=== PATIENT | female | born 2000 | race Two or more races ===

== ENCOUNTER 2025-02-27 13:46 | Inpatient (IN) | payer OTHER, SELFPAY ==
[~2025-02-27] VITALS: Ht 157.5 cm; Wt 59.1 kg
--- NOTE | 2025-02-27 14:57 | ED.PDOC ---
GI ASSESSMENT HPI Comments 24-year-old female presents here with abdominal pain. She states it began in the epigastric region and has been radiating to the right lower quadrant. She states this began around 9:00 p.m. yesterday. No nausea no vomiting no diarrhea. She states she is having regular bowel movements. No history of similar type of pain. She has not taken anything for the pain. She went to urgent care today and was sent to the ER here for further evaluation. Denies any fevers. She states when she pushes on her right lower quadrant she does have significant pain. She has a history of right ovarian cyst in the past. 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 Family History Family History: Reviewed,noncontributory to illness, Unknown Social History Smoker: Non-Smoker Alcohol: Denies ETOH Use Drugs: Denies Drug Use Lives In: Home Constitutional: denies: chills, diaphoresis, fatigue, fever, malaise, sweats, weakness, others EENTM: denies: blurred vision, double vision, ear bleeding, ear discharge, ear drainage, ear pain, ear ringing, eye pain, eye redness, hearing loss, mouth pain, mouth swelling, nasal discharge, nose bleeding, nose congestion, nose pain, photophobia, tearing, throat pain, throat swelling, voice changes, others Respiratory: denies: cough, hemoptysis, orthopnea, SOB at rest, shortness of breath, SOB with excertion, stridor, wheezing, others Cardiovascular: denies: chest pain, dizzy spells, diaphoresis, Dyspnea on exertion, edema, irregular heart beat, left arm pain, lightheadedness, palpitations, PND, syncope, others Gastrointestinal: reports: abdominal pain; denies: abdomen distended, blood streaked bowels, constipated, diarrhea, dysphagia, difficulty swallowing, hematemesis, melena, nausea, poor appetite, poor fluid intake, rectal bleeding, rectal pain, vomiting, others Genitourinary: denies: abnormal vagina bleeding, burning, dyspareunia, dysuria, flank pain, frequency, hematuria, incontinence, pain, , vagina discharge, urgency, others Neurological: denies: dizziness, fainting, headache, left sided numbness, left sided weakness, numbness, paresthesia, pre-existing deficit, right sided numbness, right sided weakness, seizure, speech problems, tingling, tremors, weakness, others Musculoskeletal: denies: back pain, gout, joint pain, joint swelling, muscle pain, muscle stiffness, neck pain, others Integumetry: denies: bruises, change in color, change in hair/nails, dryness, laceration, lesions, lumps, rash, wounds, others Allergic/Immunocompromised: denies: Difficulty Healing, Frequent Infections, Hives, Itching, others Hematologic/Lymphatic: denies: anemia, blood clots, easy bleeding, easy bruising, swollen glands, others Endocrine: denies: excessive hunger, excessive sweating, excessive thirst, excessive urination, flushing, intolerance to cold, intolerance to heat, unexplained weight gain, unexplained weight loss, others Psychiatric: denies: anxiety, bipolar disorder, depression, hopeless, panic disorder, schizophrenia, sleepless, suicidal, others All Other Systems: Reviewed and Negative Physical Exam General Appearance: Moderate Distress HEENT: Normal ENT Inspection, Pharynx Normal, TMs Normal Neck: Full Range of Motion, Non-Tender, Normal, Normal Inspection Respiratory: Chest Non-Tender, Lungs Clear, No Accessory Muscle Use, No Respiratory Distress, Normal Breath Sounds Cardiovascular: No Edema, No JVD, No Murmur, No Gallop, Normal Peripheral Pulses, Regular Rate/Rhythm Breast Exam: Deferred Gastrointestinal: Soft, Tenderness, Other (Right lower quadrant tenderness to palpation) Genitalia: Deferred Pelvic: Deferred Rectal: Deferred Extremities: No calf tenderness, Normal capillary refill, Normal inspection, Normal range of motion, Non-tender, No pedal edema Musculoskeletal : Apperance: Normal Neurologic: Alert, No Motor Deficits, Normal Affect, Normal Mood, No Sensory Deficits Cerebellar Function: Normal Reflexes: Normal Skin: Dry, Normal Color, Warm Lymphatic: No Adenopathy Was a procedure done? Was a procedure done?: No GI differential Dx Differential Diagnosis: Appendicitis, Cholecystitis, Ectopic , Gastritis/PUD, Gastroenteritis, Ovarian cyst/torsion, UTI, Dehydration, Electrolyte Imbalance, , Impaction X-Ray, Labs, Meds, VS Vital Signs Date Time Temp Pulse Resp B/P (MAP) Pulse Ox O2 Delivery O2 Flow Rate FiO2 02/27/25 17:46 78 18 118/70 02/27/25 17:40 97.5 78 18 118/70 (86) 98 97.5 02/27/25 13:47 97.7 71 18 109/68 100 97.7 Lab Test 02/27/25 15:15 02/27/25 14:52 Range/Units Urine Color Yellow Yellow Urine Clarity Clear Clear Urine pH 6.0 5.0-9.0 Urine Specific [place] 1.035 1.001-1.035 Urine Protein Trace H Negative Urine Ketones 1+ H Negative Urine Blood 3+ H Negative /uL Urine Nitrite Negative Negative Urine Bilirubin Negative Negative Urine Urobilinogen 2 H Negative mg/dL Urine Leukocyte Esterase Negative Negative /uL Urine RBC 319 0 - 4 /hpf Urine Microscopic WBC 2 0-5 /HPF Urine Squamous Epithelial Cells Mod <5 /hpf Urine Bacteria None seen None Seen /hpf Urine Mucus Few None Seen Urine Glucose Normal Normal mg/dL Urine Test Negative Negative White Blood Count 9.5 4.4-10.8 10^3/uL Red Blood Count 4.74 4.0-5.20 10^6/uL Hemoglobin 13.6 12.2-16.2 g/dL Hematocrit 39.8 36.0-46.0 % Mean Corpuscular Volume 84.0 80.0-100.0 fL Mean Corpuscular Hemoglobin 28.7 28.0-32.0 pg Mean Corpuscular Hemoglobin Concent 34.1 32.0-36.0 g/dL Red Cell Distribution Width 14.5 H 11.8-14.3 % Platelet Count 277 140-450 10^3/uL Mean Platelet Volume 8.6 6.9-10.8 fL Neutrophils (%) (Auto) 67.7 37.0-80.0 % Lymphocytes (%) (Auto) 22.0 10.0-50.0 % Monocytes (%) (Auto) 7.8 0.0-12.0 % Eosinophils (%) (Auto) 1.6 0.0-7.0 % Basophils (%) (Auto) 0.9 0.0-2.0 % Neutrophils # (Auto) 6.4 1.6-8.6 10 ^3/uL Lymphocytes # (Auto) 2.1 0.4-5.4 10 ^3/uL Monocytes # (Auto) 0.7 0-1.3 10 ^3/uL Eosinophils # (Auto) 0.1 0-0.8 10 ^3/uL Basophils # (Auto) 0.1 0-0.2 10 ^3/uL Nucleated Red Blood Cells 0.1 % Sodium Level 141 136-145 mmol/L Potassium Level 3.5 3.5-5.1 mmol/L Chloride Level 107 98-107 mmol/L Carbon Dioxide Level 22 20-31 mmol/L Anion Gap 12 5-15 Blood Urea Nitrogen 8 L 9-23 mg/dL Creatinine 0.88 0.550-1.02 mg/dL Glomerular Filtration Rate Calc 95 >90 mL/min BUN/Creatinine Ratio 9.1 L 10.0-20.0 Serum Glucose 72 L 74-106 mg/dL Calcium Level 9.4 8.7-10.4 mg/dL Total Bilirubin 0.7 0.2-1.0 mg/dL Aspartate Amino Transferase (AST) 20 13-40 U/L Alanine Aminotransferase (ALT) 17 7-40 U/L Alkaline Phosphatase 67 46-116 U/L Total Protein 7.8 5.7-8.2 g/dL Albumin 4.9 H 3.2-4.8 g/dL Lipase 24 12-53 U/L Current Medications Medications (Trade) Dose Ordered Sig/Frank Route Start Time Stop Time Status Last Admin Morphine Sulfate 4 mg ONCE ONCE IV 02/27/25 15:00 02/27/25 15:01 DC 02/27/25 17:46 [place] [id number] Ph: [phone] DIAGNOSTIC IMAGING Diagnostic Imaging Report : [id number] Signed PATIENT: MANAV TUCKER ACCT: [id number] UNIT: [id number] : 2000 LOC: ER ROOM / BED: / AGE / SEX: 24 / F ADM STATUS: REG ER SERVICE [id number] ORDERING PHYSICIAN: TERRIE PAL MD PROCEDURE(s): ABPLIV - CT AB PEL WITH IV CON ONLY REASON: ro appendicitis ORDER NUMBER(s): [id number], ACCESSION NUMBER(s): [id number] Exam: CT CT AB PEL WITH IV CON ONLY History: ro appendicitis Comparison Study: US PELVIC on DOS: 02/27/25 TECHNIQUE: Multidetector CT of the abdomen was performed from lung bases to pubic symphysis. Imaging was performed without IV contrast. Axial, coronal and sagittal multiplanar reformats were obtained from the axial data set by the technologist. Radiation Dose Information: CT Dose: CTDI volume is 6.24 mGy. Dose-length product is 292.95 mGy*cm FINDINGS: Evaluation of solid organs is limited due to lack of intravenous contrast use. Findings: Lung Bases: No acute or significant lung base finding. Normal heart size. No pleural or pericardial effusion. Liver: The liver is normal in size. No focal lesions. Gallbladder and Biliary Tree: Unremarkable Spleen: Unremarkable Pancreas: 5.3 by 4.7 x 3.9 cm mass in the body of the pancreas. CT abdomen and pelvis with oral and IV contrast or MRCP for further evaluation. Adrenal Glands: Unremarkable Kidneys: Kidneys are grossly normal without calculi or hydronephrosis. Bladder: Grossly unremarkable for degree of distention. Bowel: The stomach is grossly normal in appearance. Small bowel and colon are normal in caliber and distribution. The appendix is not visualized; however, no secondary findings of acute appendicitis identified. Ascites: Absent Lymphadenopathy: No mesenteric, retroperitoneal or periportal lymphadenopathy. Abdominal Wall and Mesentery: Unremarkable. Vasculature: The visualized abdominal aorta is normal in size and caliber. Evaluation of abdominal and pelvic vessels is limited due to lack of intravenous contrast. Pelvic Organs: IUD in the uterus Musculoskeletal: No aggressive focal bony lesions, acute fractures or dislocation. Soft tissues: Unremarkable IMPRESSION: 1. Findings worrisome for mass body of the pancreas measuring 5.3 x 4.7 by 3.[address] abdomen and pelvis with oral contrast or MRCP. This may r epresent a collection of unopacified bowel in the left upper quadrant. Radiation optimization: All CT scans at this facility use at least one of these dose optimization techniques: automated exposure control mA and/or kV adjustment per patient size (includes targeted exams where dose is matched to clinical indication) or iterative reconstruction. ATED BY: MARY WINN Jr., DO DICTATED DATE/TIME: 02/27/25 1733 SIGNED BY: MARY WINN Jr., DO SIGNED DATE/TIME: 02/27/25 5167 CC: 24-year-old female presents here with epigastric and right lower quadrant pain. On my examination she is exquisitely tender to the right lower quadrant I am concerned about possible appendicitis. Additionally considered possible cholecystitis pancreatitis, gastritis gastroenteritis. At this time I have ordered a CT abdomen pelvis with IV contrast to rule out appendicitis and as well as ultrasound of the pelvis to rule out ovarian torsion. I have ordered CBC CMP lipase. Also ordered her morphine and Zofran for pain and nausea. CBC and CMP has a returned which are unremarkable. Lipase within normal limits. Ultrasound of the pelvis with no evidence of torsion. CT abdomen pelvis with IV contrast demonstrates possible mass in the pancreas. In his recommending CT with oral contrast be done and/or MRCP. At this time hospitalist argenis roberto has been contacted for admission. Time of 1ST Reevaluation: 15:22 Reevaluation 1ST: Improved Patient Education/Counseling: Diagnosis, Treatment Family Education/Counseling: No Family Present SEPSIS Sepsis Screen Date sepsis recognized/suspect: Feb 27, 2025 Time Sepsis recognized/suspect: 1350 Recent Procedure: No On Antibiotic Therapy: No Respiratory Rate >20: No Heart Rate >90: No Temp<36 C (96.8 F) or >38.3 C: No SBP <90 or MAP <65 mmHG: No New Acute Mental Status Change: No Is the patient on CPAP, BIPAP,: No Physician Orders Ct Ab Pel With Iv Con Only (02/27/25 14:14) Transvaginal Us Non Ob (02/27/25 14:14) Pelvic (02/27/25 ) Vital Signs Date Time Temp Pulse Resp B/P (MAP) Pulse Ox O2 Delivery O2 Flow Rate FiO2 02/27/25 17:46 78 18 118/70 02/27/25 17:40 97.5 78 18 118/70 (86) 98 97.5 02/27/25 13:47 97.7 71 18 109/68 100 97.7 Laboratory Tests Test 02/27/25 14:52 White Blood Count 9.5 10^3/uL (4.4-10.8) Medications Medications Dose Ordered Sig/Frank Route Start Time Stop Time Status Last Admin Dose Admin Morphine Sulfate 4 mg ONCE ONCE IV 02/27/25 15:00 02/27/25 15:01 DC 02/27/25 17:46 Departure 1 Departure Time of Disposition: 18:00 Impression: Primary Impression: Abdominal pain Qualified Codes: R10.13 - Epigastric pain Additional Impression: Pancreatic mass Disposition: ADMITTED INPATIENT Condition: Stable Critical Care Note Critical Care Time?: No Stability Stability form required: No Heart Score Heart Score: Heart Score Response (Comments) Value History N/A 0 EKG N/A 0 Age N/A 0 Risk Factors N/A 0 Troponin N/A 0 Total 0 I personally scribed for TERRIE PAL MD ([email or web address]) on 02/27/25 at 15:18. Electronically submitted by Nathalie Sevilla ([facility] [employer] I personally scribed for TERRIE PAL MD ([email or web address]) on 02/27/25 at 17:43. Electronically submitted by Nathalie Sevilla ([facility] [employer]). TERRIE PAL MD Feb 27, 2025 14:57
[2025-02-27 15:12] LABS: Hematocrit 39.8 % (36.0-46.0); Hemoglobin 13.6 g/dL (12.2-16.2); Mean Corpuscular Hemoglobin 28.7 pg (28.0-32.0); Mean Corpuscular Volume 84.0 fL (80.0-100.0); Nucleated Red Blood Cells % 0.1 %
[2025-02-27 15:19] LABS: Potassium 3.5 mmol/L (3.5-5.1); Sodium 141 mmol/L (136-145)
[2025-02-27 15:20] LABS: Calcium 9.4 mg/dL (8.7-10.4)
[2025-02-27 15:25] LABS: BUN/Creatinine Ratio 9.1 (10.0-20.0)
[2025-02-27 15:26] LABS: Alkaline Phosphatase 67 U/L (46-116); Total Protein 7.8 g/dL (5.7-8.2)
[2025-02-27 15:27] LABS: Anion Gap 12 (5-15); Bilirubin, Total 0.7 mg/dL (0.2-1.0); Chloride 107 mmol/L (98-107); Glucose 72 mg/dL (74-106)
[2025-02-27 15:28] LABS: Blood Urea Nitrogen 8 mg/dL (9-23)
[2025-02-27 15:34] LABS: Albumin 4.9 g/dL (3.2-4.8); Carbon Dioxide 22 mmol/L (20-31)
[2025-02-27 15:41] LABS: Urine Protein, UAD TRACE (Negative)
[2025-02-27 15:45] LABS: Alanine Aminotransferase 17 U/L (7-40)
--- NOTE | 2025-02-27 16:29 | DVH ---
Technique: Real-time ultrasound images through the pelvis using a transabdominal transducer. For bett er evaluation of the ovaries and endometrial stripe, an endovaginal transducer was used. Indication: R/O TORSION Comparison: None Findings: The uterus measures 8.6 cm. The endometrial stripe measures 4 mm. There are no focal masses. There is no abnormal flow in the endometrium. Intrauterine device extending to the fundal region. Right ovary measures 3.7 x 2.4 x 2.9 cm. Normal flow on color doppler images. No focal masses are shalini ntified. Left ovary measures 3 x 2.2 x 2.2 cm. Normal flow on color doppler images. No focal masses are ident ified. There is no significant free fluid in the pelvis. Impression: No sonographic evidence for ovarian torsion. Intrauterine device.
--- NOTE | 2025-02-27 17:35 | DVH ---
Exam: CT CT AB PEL WITH IV CON ONLY History: ro appendicitis Comparison Study: US PELVIC on DOS: 02/27/25 TECHNIQUE: Multidetector CT of the abdomen was performed from lung bases to pubic symphysis. Imaging was performed without IV contrast. Axial, coronal and sagittal multiplanar reformats were obtained fr om the axial data set by the technologist. Radiation Dose Information: CT Dose: CTDI volume is 6.24 mGy. Dose-length product is 292.95 mGy*cm FINDINGS: Evaluation of solid organs is limited due to lack of intravenous contrast use. Findings: Lung Bases: No acute or significant lung base finding. Normal heart size. No pleural or pericardial effusion. Liver: The liver is normal in size. No focal lesions. Gallbladder and Biliary Tree: Unremarkable Spleen: Unremarkable Pancreas: 5.3 by 4.7 x 3.9 cm mass in the body of the pancreas. CT abdomen and pelvis with oral and I V contrast or MRCP for further evaluation. Adrenal Glands: Unremarkable Kidneys: Kidneys are grossly normal without calculi or hydronephrosis. Bladder: Grossly unremarkable for degree of distention. Bowel: The stomach is grossly normal in appearance. Small bowel and colon are normal in caliber and d istribution. The appendix is not visualized; however, no secondary findings of acute appendicitis id entified. Ascites: Absent Lymphadenopathy: No mesenteric, retroperitoneal or periportal lymphadenopathy. Abdominal Wall and Mesentery: Unremarkable. Vasculature: The visualized abdominal aorta is normal in size and caliber. Evaluation of abdominal a nd pelvic vessels is limited due to lack of intravenous contrast. Pelvic Organs: IUD in the uterus Musculoskeletal: No aggressive focal bony lesions, acute fractures or dislocation. Soft tissues: Unremarkable IMPRESSION: 1. Findings worrisome for mass body of the pancreas measuring 5.3 x 4.7 by 3.[address] abdomen and pelvis with oral contrast or MRCP. This may represent a collection of unopacified bowel in the left upper quadrant. Radiation optimization: All CT scans at this facility use at least one of these dose optimization dena hniques: automated exposure control mA and/or kV adjustment per patient size (includes targeted exam s where dose is matched to clinical indication) or iterative reconstruction.
[2025-02-27] MEDS: IOHEXOL 300 MG/ML 100ML BOTTLE IJ ONE (17:46)
[2025-02-27] MEDS: MORPHINE SULFATE 4 MG/ML SYR/VIAL IV ONE (17:46)
--- NOTE | 2025-02-27 18:58 | DVHHP2 ---
Admitting Diagnosis: Abdominal pain History of Present Illness 24-year-old female presents here with abdominal pain. She states it began in the epigastric region and has been radiating to the right lower quadrant. She states this began around 9:00 p.m. yesterday. No nausea no vomiting no diarrhea. She states she is having regular bowel movements. No history of similar type of pain. She has not taken anything for the pain. She went to urgent care today and was sent to the ER here for further evaluation. Denies any fevers. She states when she pushes on her right lower quadrant she does have significant pain. She has a history of right ovarian cyst in the past. 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 No apparent distress HEENT-atraumatic normocephalic Heart-regular rate and rhythm Lungs clear to auscultate bilaterally Abdomen soft, mild tender epigastrium, nondistended Musculoskeletal-no edema cyanosis Neuro-AO x3, no focal deficits SEPSIS Sepsis Screen Date sepsis recognized/suspect: Feb 27, 2025 Time Sepsis recognized/suspect: 1350 Recent Procedure: No On Antibiotic Therapy: No Respiratory Rate >20: No Heart Rate >90: No Temp<36 C (96.8 F) or >38.3 C: No SBP <90 or MAP <65 mmHG: No New Acute Mental Status Change: No Is the patient on CPAP, BIPAP,: No Physician Orders Ct Ab Pel With Iv Con Only (02/27/25 14:14) Transvaginal Us Non Ob (02/27/25 14:14) Pelvic (02/27/25 ) Vital Signs Date Time Temp Pulse Resp B/P (MAP) Pulse Ox O2 Delivery O2 Flow Rate FiO2 02/27/25 17:46 78 18 118/70 02/27/25 17:40 97.5 78 18 118/70 (86) 98 97.5 02/27/25 13:47 97.7 71 18 109/68 100 97.7 Laboratory Tests Test 02/27/25 14:52 White Blood Count 9.5 10^3/uL (4.4-10.8) Medications Medications Dose Ordered Sig/Frank Route Start Time Stop Time Status Last Admin Dose Admin Morphine Sulfate 4 mg ONCE ONCE IV 02/27/25 15:00 02/27/25 15:01 DC 02/27/25 17:46 Results Labs Test 02/27/25 15:15 02/27/25 14:52 Range/Units Urine Color Yellow Yellow Urine Clarity Clear Clear Urine pH 6.0 5.0-9.0 Urine Specific [place] 1.035 1.001-1.035 Urine Protein Trace H Negative Urine Ketones 1+ H Negative Urine Blood 3+ H Negative /uL Urine Nitrite Negative Negative Urine Bilirubin Negative Negative Urine Urobilinogen 2 H Negative mg/dL Urine Leukocyte Esterase Negative Negative /uL Urine RBC 319 0 - 4 /hpf Urine Microscopic WBC 2 0-5 /HPF Urine Squamous Epithelial Cells Mod <5 /hpf Urine Bacteria None seen None Seen /hpf Urine Mucus Few None Seen Urine Glucose Normal Normal mg/dL Urine Test Negative Negative White Blood Count 9.5 4.4-10.8 10^3/uL Red Blood Count 4.74 4.0-5.20 10^6/uL Hemoglobin 13.6 12.2-16.2 g/dL Hematocrit 39.8 36.0-46.0 % Mean Corpuscular Volume 84.0 80.0-100.0 fL Mean Corpuscular Hemoglobin 28.7 28.0-32.0 pg Mean Corpuscular Hemoglobin Concent 34.1 32.0-36.0 g/dL Red Cell Distribution Width 14.5 H 11.8-14.3 % Platelet Count 277 140-450 10^3/uL Mean Platelet Volume 8.6 6.9-10.8 fL Neutrophils (%) (Auto) 67.7 37.0-80.0 % Lymphocytes (%) (Auto) 22.0 10.0-50.0 % Monocytes (%) (Auto) 7.8 0.0-12.0 % Eosinophils (%) (Auto) 1.6 0.0-7.0 % Basophils (%) (Auto) 0.9 0.0-2.0 % Neutrophils # (Auto) 6.4 1.6-8.6 10 ^3/uL Lymphocytes # (Auto) 2.1 0.4-5.4 10 ^3/uL Monocytes # (Auto) 0.7 0-1.3 10 ^3/uL Eosinophils # (Auto) 0.1 0-0.8 10 ^3/uL Basophils # (Auto) 0.1 0-0.2 10 ^3/uL Nucleated Red Blood Cells 0.1 % Sodium Level 141 136-145 mmol/L Potassium Level 3.5 3.5-5.1 mmol/L Chloride Level 107 98-107 mmol/L Carbon Dioxide Level 22 20-31 mmol/L Anion Gap 12 5-15 Blood Urea Nitrogen 8 L 9-23 mg/dL Creatinine 0.88 0.550-1.02 mg/dL Glomerular Filtration Rate Calc 95 >90 mL/min BUN/Creatinine Ratio 9.1 L 10.0-20.0 Serum Glucose 72 L 74-106 mg/dL Calcium Level 9.4 8.7-10.4 mg/dL Total Bilirubin 0.7 0.2-1.0 mg/dL Aspartate Amino Transferase (AST) 20 13-40 U/L Alanine Aminotransferase (ALT) 17 7-40 U/L Alkaline Phosphatase 67 46-116 U/L Total Protein 7.8 5.7-8.2 g/dL Albumin 4.9 H 3.2-4.8 g/dL Lipase 24 12-53 U/L Primary Diagnosis Pancreatic mass Abdominal pain Plan Scan shows pancreatic mass the ultrasound shows no ovarian torsion Check CT abdomen and pelvis with IV contrast to assess for pancreatic mass Check MRCP to assess for pancreatic mass Oncology consult pancreatic mass Check CA 19-9, CEA IVF anti-ematic pain control full code scd for dvt ppx for possible biopsy ppi for gi ppx Plan discussed with: Patient Problems List: (1) Pancreatic mass Status: Acute (2) Abdominal pain Status: Acute Date of Service: Feb 27, 2025 Billing Provider: ANTHONY MONDRAGON MD Common Visit Codes: [id number] INP/OBS CARE (MOD) ANTHONY MONDRAGON MD Feb 27, 2025 18:58
[2025-02-27 20:00] VITALS: PULSE 75; RESP 20; O2SAT 95
[2025-02-27] MEDS ORDERED: DOCUSATE SOD 100 MG CAP PO PRN (20:00)
[2025-02-27] MEDS ORDERED: HYDROmorphone HCL 2 MG/ML VL/or syr IV PRN (20:00)
[2025-02-27] MEDS ORDERED: ACETAMINOPHEN 325 MG TAB PO PRN (20:00)
[2025-02-27] MEDS ORDERED: ONDANSETRON HCL 4 MG/2 ML VIAL IV PRN (20:00)
[2025-02-27] MEDS: SODIUM CHLOR 0.9% PF (SALINE LOCK) 10ML VIAL/SYR IV SCH (22:19)
[2025-02-27] MEDS: OMNIPAQUE 12mg/ml 500ml ORAL SOLUTION PO ONE (22:29)
--- NOTE | 2025-02-27 23:01 | DVH ---
Exam: CT CT AB PEL WITH ORAL CON ONLY History: pancreatic mass Comparison Study: CT CT AB PEL WITH IV CON ONLY on DOS: 02/27/25 Technique: Multidetector spiral CT of the abdomen was performed from lung bases to pubic symphysis. I maging was performed without IV contrast. Enteric contrast administered per institutional protocol. A xial, coronal and sagittal multiplanar reformats were obtained from the axial data set by the technol ogist. Radiation Dose : 1. Abdomen/Pelvis: CTDIvol 5.67 mGy, DLP 3.92 mGy*cm. Findings: Evaluation of solid organs is limited due to lack of intravenous contrast use. Lung Bases: Unremarkable. Liver: Unremarkable. Gallbladder and Biliary Tree: No acute findings. Excretion of previous contrast within the gallbladde r. Pancreas: Unremarkable. Spleen: Unremarkable Adrenal Glands: Unremarkable Kidneys/Ureters: No urinary stone or obstruction. Bladder: Grossly unremarkable for degree of distention. Intraluminal excreted contrast. Pelvic Organs: IUD appears adequately positioned. Prominent size of the ovaries without discrete lesi on. Bowel: Normal caliber without wall thickening. The appendix is normal, Filled with enteric contrast a nd predominantly inferior to the cecum. Enteric contrast has transited to the hepatic flexure. Vasculature: Unremarkable. Lymphadenopathy: No mesenteric, retroperitoneal or periportal lymphadenopathy. Peritoneum: Subtle diffuse hazy attenuation throughout the mesentery, nonspecific and not definitivel y pathologic. No ascites, free air, or fluid collection. Abdominal Wall: No significant hernia. Musculoskeletal: No acute findings. Mild L5-S1 spondylosis. IMPRESSION: 1. No pancreatic mass. Description on prior exam corresponds to small-bowel loops along the pancreas. 2. Normal appendix. No acute abdominopelvic abnormality. Radiation optimization: All CT scans at this facility use at least one of these dose optimization dena hniques: automated exposure control mA and/or kV adjustment per patient size (includes targeted exam s where dose is matched to clinical indication) or iterative reconstruction.
[2025-02-28] VITALS (8 sets, daily range): BP systolic 95–110; BP diastolic 51–69; PULSE 71–85; RESP 16–20; TEMP 97.9–99.3; O2SAT 93–100
[2025-02-28] MEDS: HYDROcodone-ACET 5/325MG TAB PO PRN (05:31)
--- NOTE | 2025-02-28 17:54 | DVHPN2 ---
Subjective I am assuming the care of the patient from cardiac chambers. This patient presented to the hospital with abdominal pain found to have questionable pancreatic mass with a repeat CT abdomen with the contrast shows no evidence of pancreatic mass, MRCP but all the by the admitting hospitalist. Patient complaining of minimal epigastric pain denies any nausea or vomiting. Changes from previous H/P or p: No Changes Objective Vitals Vital Signs Date Time Temp Pulse Resp B/P (MAP) Pulse Ox O2 Delivery O2 Flow Rate FiO2 02/28/25 17:00 99.3 72 16 99/64 (76) 98 99.3 02/28/25 10:24 Room Air* 0 21 Exam HEENT pupils are reactive Neck is supple CV system S2 regular rate and rhythm Respiratory bilateral diminished breath sound at bases GI positive bowel sounds, soft nondistended nontender no guarding no rigidity Extremity no edema [employer] no motor deficit Medications Current Medications Medications Dose Ordered Sig/Frank Route Start Time Stop Time Status Last Admin Dose Admin Sodium Chloride 10 ml Q8HR IV 02/27/25 22:00 02/28/25 14:00 10 ML Docusate Sodium 100 mg BIDPRN PRN PO 02/27/25 20:00 Acetaminophen 650 mg Q6HP PRN PO 02/27/25 20:00 Acetaminophen/ Hydrocodone Bitart 1 tab Q4HP PRN PO 02/27/25 20:00 02/28/25 16:15 1 TAB Hydromorphone HCl 0.5 mg Q4HP PRN IV 02/27/25 20:00 Ondansetron HCl 4 mg Q4HP PRN IV 02/27/25 20:00 Laboratory Results Laboratory Tests 02/27/25 14:52 Urinalysis Test 02/27/25 15:15 Urine Color Yellow (Yellow) Urine Clarity Clear (Clear) Urine pH 6.0 (5.0-9.0) Urine Specific [place] 1.035 (1.001-1.035) Urine Protein Trace (Negative) H Urine Ketones 1+ (Negative) H Urine Blood 3+ /uL (Negative) H Urine Nitrite Negative (Negative) Urine Bilirubin Negative (Negative) Urine Urobilinogen 2 mg/dL (Negative) H Urine Leukocyte Esterase Negative /uL (Negative) Urine RBC 319 /hpf (0 - 4) Urine Microscopic WBC 2 /HPF (0-5) Urine Squamous Epithelial Cells Mod /hpf (<5) Urine Bacteria None seen /hpf (None Seen) Urine Mucus Few (None Seen) Urine Glucose Normal mg/dL (Normal) Urine Test Negative (Negative) Assessment/Plan Assessment/Plan 23-year-old female with no significant past medical history presented to the hospital with unspecified abdominal pain found to have 1. Questionable pancreatic mass on the noncontrast CT with a repeat CT abdomen with contrast shows no evidence of metastatic mass 2. Dilated small wall close to the pancreas, no evidence of bowel obstruction 3. Abdominal pain, improved - MRCP, discharge plan if MRCP is negative. -consult hematology oncology consultation. Plan discussed with: Patient Date of Service: Feb 28, 2025 Billing Provider: MADI STRONG MD Common Visit Codes: [id number] INP/OBS CARE(MOD) MADI STRONG MD Feb 28, 2025 17:54
[2025-02-28] MEDS: SODIUM CHLORIDE 0.9% 1,000 ML IV ONE (20:29)
[2025-03-01 01:00] VITALS: BP 103/69; PULSE 74; RESP 20; TEMP 97.9; O2SAT 98
[2025-03-01 05:00] VITALS: BP 103/64; PULSE 69; RESP 14; TEMP 97.8; O2SAT 97
[2025-03-01 09:00] VITALS: BP 103/64; PULSE 79; RESP 17; TEMP 98.1; O2SAT 97
[2025-03-01 13:00] VITALS: BP 101/53; PULSE 76; RESP 18; TEMP 98; O2SAT 96
--- NOTE | 2025-03-01 15:20 | DVH ---
[id number] MRI MRCP MRI Attending Name: MATT HDEZ COMPARISON: None INDICATION: assess pancreatic mass possible cyst TECHNIQUE: MRCP was performed without the use of intravenous contrast using a MRI imaging system. Three-dimensional MRCP was performed using maximum intensity projection reconstruction on an [facility] ent workstation under concurrent supervision. FINDINGS: Visualized lower thorax: Limited imaging of the thorax demonstrates no suspicious pleural or parenchy mal disease. Liver: Normal in morphology and signal intensity. No focal hepatic mass. Gallbladder: No evidence of cholelithiasis or gallbladder wall thickening. Biliary system: There is no intrahepatic or extrahepatic bile duct dilatation. No filling defect to s uggest choledocholithiasis. Spleen: Normal in morphology and signal intensity. Pancreas: Normal in morphology and signal intensity. Adrenal glands: Normal in morphology and signal intensity. Kidneys: The kidneys are symmetric in size and appearance. No hydronephrosis. Urinary tract: The included ureters, as visualized, are normal in course and caliber. GI tract: The included portions of the bowel are within normal limits. Lymph nodes: No enlarged lymph nodes. Peritoneum: No ascites. Musculoskeletal: The bone marrow signal intensity is within normal limits. IMPRESSION: 1. No mass seen pancreatic head. 2. No intra or extra hepatic biliary ductal dilatation. No MRI evidence of choledocholithiasis.
[2025-03-01] MEDS ORDERED: PANT40TA2 PO (16:00)
--- NOTE | 2025-03-01 16:01 | DVHDS2 ---
Discharge Summary Date of Admission Feb 27, 2025 at 19:57 Date of Discharge: Mar 01, 2025 Labs/Diagnostic Data: Laboratory Results Test 02/27/25 15:15 02/27/25 14:52 Urine Color Yellow (Yellow) Urine Clarity Clear (Clear) Urine pH 6.0 (5.0-9.0) Urine Specific [place] 1.035 (1.001-1.035) Urine Protein Trace (Negative) Urine Ketones 1+ (Negative) Urine Blood 3+ /uL (Negative) Urine Nitrite Negative (Negative) Urine Bilirubin Negative (Negative) Urine Urobilinogen 2 mg/dL (Negative) Urine Leukocyte Esterase Negative /uL (Negative) Urine RBC 319 /hpf (0 - 4) Urine Microscopic WBC 2 /HPF (0-5) Urine Squamous Epithelial Cells Mod /hpf (<5) Urine Bacteria None seen /hpf (None Seen) Urine Mucus Few (None Seen) Urine Glucose Normal mg/dL (Normal) Urine Test Negative (Negative) White Blood Count 9.5 10^3/uL (4.4-10.8) Red Blood Count 4.74 10^6/uL (4.0-5.20) Hemoglobin 13.6 g/dL (12.2-16.2) Hematocrit 39.8 % (36.0-46.0) Mean Corpuscular Volume 84.0 fL (80.0-100.0) Mean Corpuscular Hemoglobin 28.7 pg (28.0-32.0) Mean Corpuscular Hemoglobin Concent 34.1 g/dL (32.0-36.0) Red Cell Distribution Width 14.5 % (11.8-14.3) Platelet Count 277 10^3/uL (140-450) Mean Platelet Volume 8.6 fL (6.9-10.8) Neutrophils (%) (Auto) 67.7 % (37.0-80.0) Lymphocytes (%) (Auto) 22.0 % (10.0-50.0) Monocytes (%) (Auto) 7.8 % (0.0-12.0) Eosinophils (%) (Auto) 1.6 % (0.0-7.0) Basophils (%) (Auto) 0.9 % (0.0-2.0) Neutrophils # (Auto) 6.4 10 ^3/uL (1.6-8.6) Lymphocytes # (Auto) 2.1 10 ^3/uL (0.4-5.4) Monocytes # (Auto) 0.7 10 ^3/uL (0-1.3) Eosinophils # (Auto) 0.1 10 ^3/uL (0-0.8) Basophils # (Auto) 0.1 10 ^3/uL (0-0.2) Nucleated Red Blood Cells 0.1 % Sodium Level 141 mmol/L (136-145) Potassium Level 3.5 mmol/L (3.5-5.1) Chloride Level 107 mmol/L (98-107) Carbon Dioxide Level 22 mmol/L (20-31) Anion Gap 12 (5-15) Blood Urea Nitrogen 8 mg/dL (9-23) Creatinine 0.88 mg/dL (0.550-1.02) Glomerular Filtration Rate Calc 95 mL/min (>90) BUN/Creatinine Ratio 9.1 (10.0-20.0) Serum Glucose 72 mg/dL (74-106) Calcium Level 9.4 mg/dL (8.7-10.4) Total Bilirubin 0.7 mg/dL (0.2-1.0) Aspartate Amino Transferase (AST) 20 U/L (13-40) Alanine Aminotransferase (ALT) 17 U/L (7-40) Alkaline Phosphatase 67 U/L (46-116) Total Protein 7.8 g/dL (5.7-8.2) Albumin 4.9 g/dL (3.2-4.8) Lipase 24 U/L (12-53) Other Laboratory Tests 02/27/25 14:52 Brief Hx & Hospital Course: 24-year-old female presents here with abdominal pain. She states it began in the epigastric region and has been radiating to the right lower quadrant. She states this began around 9:00 p.m. yesterday. No nausea no vomiting no diarrhea. She states she is having regular bowel movements. No history of similar type of pain. She has not taken anything for the pain. She went to urgent care today and was sent to the ER here for further evaluation. Denies any fevers. She states when she pushes on her right lower quadrant she does have significant pain. She has a history of right ovarian cyst in the past. She is admitted and had pelvic ultrasound as well as abdominal pelvic CT. Initial CT suggested questionable fullness in the pancreas unable to rule out any mass. Subsequently she had CT abdomen and pelvis IV contrast as well as MRCP of the abdomen. Both did not show any acute pathology. No pancreatic mass. Normal appendix. No other acute abdominal pelvic pathology. Therefore it is felt her pain could be possibly related to gastroesophageal reflux disease. She is prescribed proton pump inhibitor and being discharged home in stable condition. I have talked with the patient regarding her hospital diagnosis, CT and MRI results, discharge medications including side effects, discharge instructions and follow-up plan of care. She has verbalized understanding of these and agree with the care plan as outlined Operations or Procedures PROCEDURE(s): MRCP - MRCP MRI REASON: assess pancreatic mass possible cyst ORDER NUMBER(s): [id number], ACCESSION NUMBER(s): [id number] MRI MRCP MRI Attending Name: MATT HDEZ COMPARISON: None INDICATION: assess pancreatic mass possible cyst TECHNIQUE: MRCP was performed without the use of intravenous contrast using a MRI imaging system. Three-dimensional MRCP was performed using maximum intensity projection reconstruction on an independent workstation under concurrent supervision. FINDINGS: Visualized lower thorax: Limited imaging of the thorax demonstrates no suspicious pleural or parenchymal disease. Liver: Normal in morphology and signal intensity. No focal hepatic mass. Gallbladder: No evidence of cholelithiasis or gallbladder wall thickening. Biliary system: There is no intrahepatic or extrahepatic bile duct dilatation. No filling defect to suggest choledocholithiasis. Spleen: Normal in morphology and signal intensity. Pancreas: Normal in morphology and signal intensity. Adrenal glands: Normal in morphology and signal intensity. Kidneys: The kidneys are symmetric in size and appearance. No hydronephrosis. Urinary tract: The included ureters, as visualized, are normal in course and caliber. GI tract: The included portions of the bowel are within normal limits. Lymph nodes: No enlarged lymph nodes. Peritoneum: No ascites. Musculoskeletal: The bone marrow signal intensity is within normal limits. IMPRESSION: 1. No mass seen pancreatic head. 2. No intra or extra hepatic biliary ductal dilatation. No MRI evidence of choledocholithiasis. Condition at Discharge: Stable Final Diagnosis/Problems List GERD Discharge Disposition: Home Discharge Instruct/Medications Diet: Consistent carbohydrate, Cardiac 2g Na,low cholest Activity: No Restrictions, As Tolerated Follow Up/Referral: Primary care physician next week and if you have any new or recurrent symptoms have referral to valve maker as appropriate Medications: Take the medication as prescribed for few weeks for possible reflux disease Scheduled Pantoprazole Sodium Sesquihydr (Protonix), 40 MG PO DAILY Discharge Statement: "Patient was advised to return to the ER or call 911 if any headaches, dizziness, shortness of breath, chest pain, abdominal pain, bleeding, fevers, or worsening of medical condition. Patient was counseled about treatment plan, medications, possible side effects, patientverbalized understanding. All questions were answered to the best of my ability. This discharge took greater then 30 minutes in planning, reviewing documentation, counseling the patient, and discussing with other team members." ASSESSMENT ASSESSMENT Assessment GERD Date of Service: Mar 01, 2025 Billing Provider: MATT HDEZ MD Common Visit Codes: 11608-SOM/OBS DISCH DAY <30MIN MATT HDEZ MD Mar 01, 2025 16:01
[2025-03-01 17:00] VITALS: BP 107/72; PULSE 87; RESP 16; TEMP 98.1; O2SAT 99
== END 2025-03-01 17:55 | disposition home or self-care (01) | DRG 392 ==
LOC: ER 13:46 → OVERFLOW 19:57 → WEST WING 02-28 23:21
PROVIDERS: ADMIT Hospitalist; ATTEND Hospitalist
DX: K21.9 Gastro-esophageal reflux disease without esophagitis (principal); Z79.899 Other long term (current) drug therapy
CPT/HCPCS: 36415; 74176; 74177; 74181; 76830; 76856; 80053; 81001; 81025; 83690; 85025; 96374; G0378